=== PATIENT | female | born 1995 ===

== ENCOUNTER 2020-05-15 23:23 | Emergency (ER) | payer OTHER ==
[~2020-05-15] VITALS: Ht 172.7 cm; Wt 72.7 kg
[2020-05-15 23:27] VITALS: TEMP 98.5
[2020-05-15 23:57] LABS: BASO % 0.6 % (0.0-2.0); EOS # 0.2 (0.0-0.7); EOS % 2.2 % (0-4.0); GRAN # 2.9 (1.4-6.5); HEMATOCRIT 37.5 % (37.0-47.0); HEMOGLOBIN 13.1 g/dl (12.5-16.0); LYMPH # 3.1 (1.2-3.4); LYMPH % 44.9 % (20.0-51.0); MEAN CELL VOLUME 85 fl (80.0-100.0); MEAN CORPUSCULAR HEMOGLOBIN 30 pg (27.0-31.0); MEAN CORPUSCULAR HGB CONC 35 g/dl (33.0-37.0); MEAN PLATELET VOLUME 10.9 fl (7.4-10.4); MONO # 0.7 (0.1-0.6); MONO % 10.2 % (1.7-9.3); PLATELET COUNT 255 K/mm3 (130-400); RED BLOOD COUNT 4.39 M/mm3 (4.10-5.30); REDCELL DISTRIBUTION WIDTH-CV 12.1 % (11.5-14.5)
[2020-05-16 00:09] LABS: ALANINE AMINOTRANSFERASE 19 U/L (4-34); ALBUMIN 4.3 gm/dL (3.5-5.0); ALKALINE PHOSPHATASE 91 U/L (50-136); ANION GAP 9 mmol/L (7-16); AST,SGOT 22 U/L (15-37); BILIRUBIN,TOTAL 0.7 mg/dL (0.0-1.0); BLOOD UREA NITROGEN 16 mg/dL (7-17); C-REACTIVE PROTEIN < 0.5 mg/dL (0.0-0.9); CALCIUM 9.2 mg/dL (8.4-10.2); CARBON DIOXIDE 26 mmol/L (22-30); CHLORIDE 105 mmol/L (98-107); CREATININE, serum 0.77 (0.52-1.25); GLUCOSE 91 mg/dL (74-106); SODIUM 140 mmol/L (137-145)
[2020-05-16 00:19] LABS: COLLECTION METHOD CLEAN CATCH
[2020-05-16 00:32] LABS: MUCOUS Present /lpf; PH 6 (5-8); SQUAMOUS EPITHELIAL 0-2 /hpf; URINE APPEARANCE Hazy; URINE BACTERIA Rare /hpf; URINE BILIRUBIN Negative (NEGATIVE); URINE BLOOD Negative (NEGATIVE); URINE COLOR Yellow; URINE GLUCOSE Negative (NEGATIVE); URINE KETONE Negative (NEGATIVE); URINE LEUKOCYTE ESTERASE Trace (NEGATIVE); URINE NITRATE Negative (NEGATIVE); URINE PROTEIN(semi-quant) Negative (NEGATIVE)
[2020-05-16] MEDS ORDERED: MACROBID 1100 MG/CAP PO (00:42)
[2020-05-16 00:52] VITALS: BP 115/71; PULSE 69
== END 2020-05-16 00:52 | disposition home or self-care (01) ==
LOC: COL.ER 23:23
PROVIDERS: Physician Assistant
DX: R10.9 Unspecified abdominal pain (principal); R11.0 Nausea; Z32.02 Encounter for pregnancy test, result negative

== ENCOUNTER 2021-12-08 17:44 | Emergency (ER) | payer OTHER ==
[~2021-12-08] VITALS: Ht 175.3 cm; Wt 71.4 kg
[~2021-12-08 17:44] MED LIST: MACROBID 1100 MG/CAP PO
[2021-12-08 18:12] VITALS: TEMP 98
[2021-12-08 19:15] LABS: COLLECTION METHOD CLEAN CATCH
[2021-12-08 19:16] LABS: BASO % 0.6 % (0.0-2.0); EOS # 0.1 K/mm3 (0.0-0.7); EOS % 1.1 % (0.0-4.0); GRAN # 3.8 K/mm3 (1.4-6.5); HEMOGLOBIN 12.4 g/dl (12.5-16.0); LYMPH # 1.8 K/mm3 (1.2-3.4); LYMPH % 28.2 % (20.0-51.0); MEAN CELL VOLUME 85 fl (80.0-100.0); MEAN CORPUSCULAR HEMOGLOBIN 30 pg (27-31); MEAN CORPUSCULAR HGB CONC 35 g/dl (33.0-37.0); MEAN PLATELET VOLUME 10.8 fl (7.4-10.4); MONO # 0.6 K/mm3 (0.1-0.6); MONO % 9.8 % (1.7-9.3); PLATELET COUNT 248 K/mm3 (130-400); RED BLOOD COUNT 4.17 M/mm3 (4.10-5.30); REDCELL DISTRIBUTION WIDTH-CV 11.9 % (11.5-14.5)
[2021-12-08 19:17] LABS: HEMATOCRIT 35.6 % (37.0-47.0)
[2021-12-08 19:21] LABS: PH 8 (5-8); SQUAMOUS EPITHELIAL 0-2 /hpf (0-10); URINE APPEARANCE Clear (CLEAR/HAZY); URINE BACTERIA None Seen /hpf (NONE SEEN); URINE BILIRUBIN Negative (NEGATIVE); URINE BLOOD Negative (NEGATIVE); URINE COLOR Yellow (YELLOW); URINE GLUCOSE Negative (NEGATIVE); URINE KETONE Negative (NEGATIVE); URINE LEUKOCYTE ESTERASE Negative (NEGATIVE); URINE NITRATE Negative (NEGATIVE); URINE PROTEIN(semi-quant) Negative (NEGATIVE); URINE RBC 0-2 /hpf (0-2)
[2021-12-08 19:32] LABS: ALBUMIN 4.2 gm/dL (3.5-5.0); BILIRUBIN,TOTAL 0.6 mg/dL (0.2-1.2); CALCIUM 8.9 mg/dL (8.4-10.2); CREATININE, serum 0.78 mg/dL (0.57-1.11); POTASSIUM 4.1 mmol/L (3.5-4.5)
[2021-12-08 20:09] VITALS: BP 118/69; PULSE 77
== END 2021-12-08 20:03 | disposition home or self-care (01) ==
LOC: COL.ER 17:44
PROVIDERS: Nurse Practitioner Family
DX: R10.84 Generalized abdominal pain (principal); Z32.01 Encounter for pregnancy test, result positive

== ENCOUNTER 2021-12-16 16:18 | Emergency (ER) | payer OTHER ==
[~2021-12-16] VITALS: Ht 175.3 cm; Wt 70.9 kg
[2021-12-16 16:27] VITALS: TEMP 98.5
[2021-12-16 17:41] LABS: BASO # 0.1 K/mm3 (0.0-0.2); BASO % 0.6 % (0.0-2.0); EOS # 0.1 K/mm3 (0.0-0.7); EOS % 1.1 % (0.0-4.0); GRAN # 5.8 K/mm3 (1.4-6.5); GRAN % 71.1 % (42.2-75.2); HEMATOCRIT 38.1 % (37.0-47.0); HEMOGLOBIN 13.5 g/dl (12.5-16.0); LYMPH # 1.6 K/mm3 (1.2-3.4); LYMPH % 19.4 % (20.0-51.0); MEAN CELL VOLUME 86 fl (80.0-100.0); MEAN CORPUSCULAR HEMOGLOBIN 30 pg (27-31); MEAN CORPUSCULAR HGB CONC 35 g/dl (33.0-37.0); MEAN PLATELET VOLUME 11.5 fl (7.4-10.4); MONO # 0.6 K/mm3 (0.1-0.6); MONO % 7.3 % (1.7-9.3); PLATELET COUNT 264 K/mm3 (130-400); RED BLOOD COUNT 4.45 M/mm3 (4.10-5.30)
[2021-12-16 18:15] VITALS: BP 123/78; PULSE 74
== END 2021-12-16 18:20 | disposition home or self-care (01) ==
LOC: COL.ER 16:18
PROVIDERS: Physician Assistant
DX: O03.4 Incomplete spontaneous abortion without complication (principal); Z28.311 Partially vaccinated for COVID-19

== ENCOUNTER → 2024-01-23 | Outpatient (CLI) | payer OTHER | LOC: MHCPAIN 07:48 | DX: M47.817 Spondylosis without myelopathy or radiculopathy, lumbosacral region (principal); M54.50 Low back pain, unspecified ==

== ENCOUNTER → 2024-01-27 | Outpatient (CLI) | payer OTHER | LOC: MHCPAIN 08:40 | DX: M47.817 Spondylosis without myelopathy or radiculopathy, lumbosacral region (principal); M54.50 Low back pain, unspecified; M53.3 Sacrococcygeal disorders, not elsewhere classified | CPT/HCPCS: G0463 ==

== ENCOUNTER → 2024-03-20 | Outpatient (CLI) | payer OTHER | LOC: MHCPAIN 08:26 | DX: M54.16 Radiculopathy, lumbar region (principal); M47.817 Spondylosis without myelopathy or radiculopathy, lumbosacral region | CPT/HCPCS: G0463 ==